=== PATIENT | male | born 1955 | race Caucasian/White ===

== ENCOUNTER → 2020-07-16 | Outpatient (CLI) | payer MEDICARE ==
[2020-07-16 13:09] LABS: HEMOGLOBIN 16.3 gm/dl (14.0-17.5); RED BLOOD COUNT 5.88 M/UL (4.20-5.50); WHITE BLOOD COUNT 6.4 K/UL (4.5-11.0)
[2020-07-17 09:12] LABS: THYROXINE (T4) 6.7 ug/dL (4.5-12.0)
[2020-07-17 11:12] LABS: CREATININE, URINE 113.2 mg/dL (Not Estab.)
== END ==
LOC: LAB 12:45
PROVIDERS: Nurse Practitioner Family
DX: I12.9 Hypertensive chronic kidney disease with stage 1 through stage 4 chronic kidney disease, or unspecified chronic kidney disease (principal); E11.22 Type 2 diabetes mellitus with diabetic chronic kidney disease; N18.9 Chronic kidney disease, unspecified; E78.5 Hyperlipidemia, unspecified; Z12.5 Encounter for screening for malignant neoplasm of prostate; R53.83 Other fatigue
CPT/HCPCS: 36415; 80053; 80061; 82043; 82570; 83036; 84436; 84443; 84480; 85025; G0103

== ENCOUNTER → 2020-10-02 | Outpatient (CLI) | payer MEDICARE | LOC: LAB 13:27 | PROVIDERS: Internal Medicine Nephrology | DX: I25.10 Atherosclerotic heart disease of native coronary artery without angina pectoris (principal) | CPT/HCPCS: 36415; 80048 ==

== ENCOUNTER → 2020-11-22 | Outpatient (CLI) | payer MEDICARE ==
[2020-11-22 12:32] LABS: HEMOGLOBIN 16.8 gm/dl (14.0-17.5); RED BLOOD COUNT 6.06 M/UL (4.20-5.50); WHITE BLOOD COUNT 6.5 K/UL (4.5-11.0)
[2020-11-23 09:14] LABS: THYROXINE (T4) 6.9 ug/dL (4.5-12.0)
[2020-11-26 11:14] LABS: CREATININE, URINE 57.8 mg/dL (Not Estab.)
== END ==
LOC: LAB 11:36
PROVIDERS: Nurse Practitioner Family
DX: E11.22 Type 2 diabetes mellitus with diabetic chronic kidney disease (principal); I12.9 Hypertensive chronic kidney disease with stage 1 through stage 4 chronic kidney disease, or unspecified chronic kidney disease; N18.9 Chronic kidney disease, unspecified; E78.5 Hyperlipidemia, unspecified
CPT/HCPCS: 36415; 80053; 80061; 82043; 82570; 83036; 84436; 84443; 84480; 85025

== ENCOUNTER → 2020-12-27 | Outpatient (CLI) | payer MEDICARE | LOC: LAB 15:38 | PROVIDERS: Internal Medicine Nephrology | DX: N18.30 Chronic kidney disease, stage 3 unspecified (principal) | CPT/HCPCS: 36415; 80053; 82570; 84156 ==

== ENCOUNTER 2021-02-27 16:53 | Emergency (ER) | payer MEDICARE | END 2021-02-27 20:45 | disposition home or self-care (01) | LOC: ER1 16:53 | DX: Z23 Encounter for immunization (principal); U07.1 COVID-19; I12.9 Hypertensive chronic kidney disease with stage 1 through stage 4 chronic kidney disease, or unspecified chronic kidney disease; E11.22 Type 2 diabetes mellitus with diabetic chronic kidney disease; N18.30 Chronic kidney disease, stage 3 unspecified; Z88.0 Allergy status to penicillin | CPT/HCPCS: 99282; M0243; U0002 ==

== ENCOUNTER → 2021-04-21 | Outpatient (CLI) | payer MEDICARE | LOC: LAB 10:28 | PROVIDERS: Internal Medicine Nephrology | DX: N18.31 Chronic kidney disease, stage 3a (principal); E83.52 Hypercalcemia | CPT/HCPCS: 36415; 80053; 82570; 83970; 84100; 84156 ==

== ENCOUNTER → 2021-10-13 | Outpatient (CLI) | payer MEDICARE | LOC: LAB 11:34 | PROVIDERS: Internal Medicine Nephrology | DX: N18.31 Chronic kidney disease, stage 3a (principal); E83.52 Hypercalcemia | CPT/HCPCS: 36415; 80048 ==

== ENCOUNTER → 2022-01-30 | Outpatient (CLI) | payer MEDICARE | LOC: LAB 14:26 | PROVIDERS: Internal Medicine Nephrology | DX: N18.31 Chronic kidney disease, stage 3a (principal); E83.52 Hypercalcemia | CPT/HCPCS: 36415; 80053; 82570; 83970; 84100; 84156 ==